=== PATIENT | female | born 1985 | race Caucasian/White ===

== ENCOUNTER 2023-06-05 19:39 | Day surgery (SDC) | payer OTHER ==
[2023-06-05 19:44] VITALS: BMI 27.9
[2023-06-05] MEDS ORDERED: ONDANSETRON 4 MG/2 ML VIAL IVPB ONE (20:06)
[2023-06-05] MEDS ORDERED: SODIUM CHLORIDE 0.9% 500 ML INFUS.BAG IV ONE (20:06)
[2023-06-05] MEDS ORDERED: FAMOTIDINE 20 MG/50 ML IVPB 20 MG/50 ML MG IVPB ONE ×2 (20:07→20:28)
[2023-06-05] MEDS ORDERED: ACETAMINOPHEN 1000 MG/100 ML BAG IVPB ONE (20:07)
[2023-06-05] MEDS ORDERED: ONDANSETRON 4 MG/2 ML VIAL ONE (20:28)
[2023-06-05] MEDS ORDERED: ACETAMINOPHEN INJECTION 100 ML IVPB ONE (20:28)
[2023-06-05 21:19] LABS: BASO % 0.3 % (0-2.0); EOS % 0.5 % (0-4.5); HEMATOCRIT 32.6 % (32.4-45.2); HEMOGLOBIN 10.8 GM/dL (10.7-15.3); LYMPH % 18.4 % (8-40); MCH 25.9 pg (25.7-33.7); MCHC 33.1 g/dl (32.0-36.0); MEAN CELL VOLUME 78.2 fl (80-96); MEAN PLT VOLUME 8.6 fl (7.5-11.1); MONO % 5.9 % (3.8-10.2); NEUT % 74.9 % (42.8-82.8); PLATELET COUNT 221 10^3/uL (134-434); RBC 4.16 M/mm3 (3.60-5.2); RDW 13.5 % (11.6-15.6); WHITE BLOOD COUNT 10.5 K/mm3 (4.0-10.0)
[2023-06-05 21:29] LABS: POTASSIUM 3.7 mmol/L (3.5-5.1)
[2023-06-05 21:31] LABS: CALCIUM 8.5 mg/dL (8.5-10.1)
[2023-06-05 21:32] LABS: ALBUMIN 3.4 g/dl (3.4-5.0); BLOOD UREA NITROGEN 6.4 mg/dL (7-18)
[2023-06-05 21:35] LABS: CREATININE 0.6 mg/dL (0.55-1.3)
[2023-06-05 21:36] LABS: BILIRUBIN,TOTAL 0.3 mg/dL (0.2-1); TOT PROT 6.7 g/dl (6.4-8.2)
[2023-06-05] MEDS ORDERED: morphine SULFATE 4 MG/ML VIAL IM ONE (22:39)
[2023-06-05] MEDS: morphine SULFATE 4 MG/ML VIAL IVPUSH ONE ×2 (22:44→22:45)
[2023-06-05 22:57] LABS: URINE APPEARANCE CLEAR; URINE BILIRUBIN NEGATIVE (NEGATIVE); URINE COLOR YELLOW; URINE GLUCOSE (UA) NEGATIVE (NEGATIVE); URINE KETONE 2+ (NEGATIVE); URINE LEUK ESTERASE NEGATIVE (NEGATIVE); URINE NITRITE NEGATIVE (NEGATIVE); URINE PROTEIN NEGATIVE (NEGATIVE); URINE UROBILINOGEN 0.2 mg/dL (0.2-1.0)
[2023-06-06 00:31] LABS: HEMATOCRIT 31.9 % (32.4-45.2); HEMOGLOBIN 10.7 GM/dL (10.7-15.3); MCH 26.2 pg (25.7-33.7); MCHC 33.4 g/dl (32.0-36.0); MEAN CELL VOLUME 78.6 fl (80-96); MEAN PLT VOLUME 8.8 fl (7.5-11.1); PLATELET COUNT 212 10^3/uL (134-434); RBC 4.06 M/mm3 (3.60-5.2); RDW 13.4 % (11.6-15.6); WHITE BLOOD COUNT 15.3 K/mm3 (4.0-10.0)
[2023-06-06] MEDS ORDERED: morphine SULFATE 4 MG/ML VIAL IVPUSH ONE (00:39)
[2023-06-06] MEDS ORDERED: morphine SULFATE 4 MG/ML VIAL ONE (00:43)
[2023-06-06] MEDS ORDERED: ONDANSETRON 4 MG/2 ML VIAL IVPB ONE (00:45)
[2023-06-06] MEDS ORDERED: ONDANSETRON 4 MG/2 ML VIAL ONE ×3 (00:45→01:59)
[2023-06-06] MEDS ORDERED: MIDAZOLAM HCL 2 MG/2 ML SINGLE DOSE VIAL ONE (01:02)
[2023-06-06] MEDS ORDERED: SUCCINYLCHOLINE CHLORIDE 200 MG/10 ML SYRINGE ONE (01:02)
[2023-06-06] MEDS ORDERED: PROPOFOL 20 ML ONE (01:02)
[2023-06-06] MEDS ORDERED: FENTANYL CITRATE/PF 50 MCG/ML VIAL ONE ×4 (01:02→02:38)
[2023-06-06] MEDS ORDERED: ONDANSETRON 4 MG/2 ML VIAL IVPUSH PRN (01:12)
[2023-06-06] MEDS ORDERED: LACTATED RINGERS SOLUTION 1,000 ML IV SCH (01:15)
[2023-06-06] MEDS ORDERED: BUPIVACAINE HCL/PF 0.5% (5MG/ML) 10 ML VIAL ONE (01:23)
[2023-06-06] MEDS ORDERED: ROCURONIUM BROMIDE 50 MG/5 ML SYRINGE ONE (01:26)
[2023-06-06] MEDS ORDERED: SODIUM CHLORIDE 0.9% P/F 10 ML VIAL IJ ONE (01:26)
[2023-06-06] MEDS ORDERED: LIDOCAINE HCL/PF 2% SDV 5ML VIAL ONE (01:26)
[2023-06-06] MEDS ORDERED: BUPIVACAINE HCL/PF 0.5% (5MG/ML) 10 ML VIAL IJ ONE (01:33)
[2023-06-06] MEDS ORDERED: DEXAMETHASONE SOD PHOSPHATE 4 MG/1 ML VIAL ONE (01:33)
[2023-06-06] MEDS ORDERED: NEOSTIGMINE METHYLSULFATE 0.5 MG/1 ML - 10 ML MDV ONE (01:58)
[2023-06-06] MEDS ORDERED: GLYCOPYRROLATE 0.2 MG/1 ML VIAL ONE ×2 (01:59→02:04)
[2023-06-06] MEDS ORDERED: IBUPROFEN 600 MG TABLET (FP) PO PRN (02:05)
[2023-06-06] MEDS ORDERED: ACETAMINOPHEN 325 MG TABLET (FP) PO PRN (02:05)
[2023-06-06] MEDS: IBUPROFEN 800 MG/8 ML IJ IVPB PRN ×2 (04:19→12:08)
[2023-06-06 05:03] VITALS: RESP 18
[2023-06-06 14:39] VITALS: BP 95/53; PULSE 65; TEMP 98.5
[2023-06-06] MEDS ORDERED: ACETAMINOPHEN 1000 MG/100 ML BAG IVPB ONE (16:00)
== END 2023-06-06 16:48 | disposition home or self-care (01) ==
LOC: JER 19:39 → JASU-SURG 06-06 00:44 → J8W 06-06 04:06 → JASU-SURG 06-06 16:48
PROVIDERS: ATTEND Obstetrics & Gynecology
PROC: 0UB64ZZ Excision of Left Fallopian Tube, Percutaneous Endoscopic Approach (ICD-10-PCS; principal; 2023-06-06 00:52)
DX: O00.102 Left tubal pregnancy without intrauterine pregnancy (principal)
CPT/HCPCS: 36415; 76705-TC; 76817-TC; 80053; 81003; 83690; 84484; 84702; 85025; 85027; 85610; 85730; 86850; 86900; 86901; 87086; 88305-TC; 93005; 93010; 94760; 99291; 99292